=== PATIENT | female | born 1950 | race Caucasian/White ===

== ENCOUNTER 2023-11-18 12:57 | Emergency (ER) | payer MEDICARE, MEDICAID ==
[~2023-11-18] VITALS: Ht 165.1 cm; Wt 91.0 kg
[2023-11-18 13:08] VITALS: BP 220/107; PULSE 90; RESP 16; TEMP 98.5; O2SAT 98
== END 2023-11-18 15:00 | disposition home or self-care (01) ==
LOC: ER 12:57
DX: Z76.1 Encounter for health supervision and care of foundling (principal); E11.9 Type 2 diabetes mellitus without complications; I10 Essential (primary) hypertension; Z59.00 Homelessness unspecified
CPT/HCPCS: 99283

== ENCOUNTER 2023-11-24 07:54 | Emergency (ER) | payer MEDICARE, MEDICAID | END 2023-11-24 08:24 | disposition left against medical advice (07) | LOC: ER 07:54 | DX: F69 Unspecified disorder of adult personality and behavior (principal); Z53.21 Procedure and treatment not carried out due to patient leaving prior to being seen by health care provider ==